=== PATIENT | male | born 1985 | race American Indian/Alaskan Native ===

== ENCOUNTER 2019-12-26 17:43 | Emergency (ER) | payer OTHER ==
[2019-12-26] MEDS ORDERED: KETOROLAC 30 MG/ML INJ ONE (21:21)
--- NOTE | 2019-12-26 21:58 | ER ---
Nurse's Notes [facility] Name: Rowan Carmona Age: 34 yrs Sex: Male : 1985 Arrival Date: 12/26/2019 Time: 17:47 Bed 23 Private MD: Diagnosis: Pain in right lower leg Presentation: 12/25 17:53 Chief complaint: Patient states: R lower leg pain x months that became worse last ss night. Coronavirus screen: Client denies travel out of the [place] in the last 14 days. Ebola Screen: Patient denies exposure to infectious person. Patient denies travel to an Ebola-affected area in the 21 days before illness onset. Initial Sepsis Screen: Does the patient meet any 2 criteria? No. Patient's initial sepsis screen is negative. Does the patient have a suspected source of infection? No. Patient's initial sepsis screen is negative. Risk Assessment: Do you want to hurt yourself or someone else? Patient reports no desire to harm self or others. Onset of symptoms was 2019. 17:53 Method Of Arrival: Ambulatory 17:53 Acuity: [facility] 3 Historical: - Allergies: 17:57 Aspirin; ss - Home Meds: 17:57 None [Active]; ss - PMHx: 17:57 Asthma; ss - PSHx: 17:57 None; ss - Immunization history:: Adult Immunizations up to date. - Social history:: Smoking status: Patient reports the use of cigarette tobacco products, smokes one-half pack cigarettes per day. Vital Signs: 17:53 BP 152 / 96; Pulse 80; Resp 15; Temp 98.5(TE); Pulse Ox 100% on R/A; Weight 88 kg; Height 5 ft. 10 in. (177.80 cm); Pain 8/10; 22:15 BP 156 / 103; Pulse 64; Resp 18; Temp 97.9; Pulse Ox 100% on R/A; dm5 17:53 Body Mass Index 27.84 (88.00 kg, 177.80 cm) ED Course: 17:47 Patient arrived in ED. mr 17:56 Triage completed. 17:57 Arm band placed on right wrist. 20:31 Gopal Coker PA is PHCP. [facility] 20:31 David Millard MD is Attending Physician. m 21:14 Nette Evans, RN is Primary Nurse. dm5 21:56 US Extremity Venous Unilateral Ltd In Process Unspecified. EDMS 21:57 Elmer Hodge MD is Referral Physician. [facility] Administered Medications: 21:15 Drug: Ketorolac 30 mg Route: IM; Site: right deltoid; dm5 Outcome: 21:57 Discharge ordered by . jmm 22:20 Patient left the ED. dm5 Signatures: Dispatcher [employer] EDMO Nette Evans, RN RN dm5 Gopal Coker PA PA jmm Rivera, Mary mr Smirch, Shelby, RN RN ss
--- NOTE | 2019-12-26 21:58 | EDPHYS ---
Physician Documentation [facility] Name: Rowan Carmona Age: 34 yrs Sex: Male : 1985 Arrival Date: 12/26/2019 Time: 17:47 Bed 23 Private MD: ED Physician David Millard HPI: 12/25 20:31 This 34 yrs old Other Male presents to ER via Ambulatory with complaints of Leg jmm Swelling, Back Pain. 20:31 The patient presents with pain. Onset: The symptoms/episode began/occurred gradually, 1 jmm month(s) ago. Modifying factors: The symptoms are alleviated by nothing. the symptoms are aggravated by nothing. Associated signs and symptoms: Pertinent positives: swelling, Pertinent negatives fever. This is a 34 year old male with a history of asthma that presents to the ED with complaints of right lower leg pain for the past month. Patient states recently developing pain and swelling to his right calf. Denies fever. Denies injury. . Historical: - Allergies: 17:57 Aspirin; ss - Home Meds: 17:57 None [Active]; ss - PMHx: 17:57 Asthma; ss - PSHx: 17:57 None; ss - Immunization history:: Adult Immunizations up to date. - Social history:: Smoking status: Patient reports the use of cigarette tobacco products, smokes one-half pack cigarettes per day. ROS: 20:31 Constitutional: Negative for fever, chills, and weight loss, Cardiovascular: Negative jmm for chest pain, palpitations, and edema, Respiratory: Negative for shortness of breath, cough, wheezing, and pleuritic chest pain. 20:31 MS/extremity: Positive for pain, swelling. 20:31 All other systems are negative. Exam: 20:31 Constitutional: This is a well developed, well nourished patient who is awake, alert, jmm and in no acute distress. Head/Face: atraumatic. Eyes: EOMI, no conjunctival erythema appreciated ENT: Moist Mucus Membranes Neck: Trachea midline, Supple Chest/axilla: Normal chest wall appearance and motion. Cardiovascular: Regular rate and rhythm. No edema appreciated Respiratory: Normal respirations, no respiratory distress appreciated Abdomen/GI: Non distended, soft Back: Normal ROM 20:31 Musculoskeletal/extremity: ROM: intact in all extremities, compartments are soft, full dorsalis pulse, mild calf tenderness, NVI. 20:31 Skin: Appearance: Color: normal in color. 20:31 Neuro: Orientation: is normal, Mentation: is normal, Memory: is normal. 20:31 Psych: Behavior/mood is pleasant, cooperative. Vital Signs: 17:53 BP 152 / 96; Pulse 80; Resp 15; Temp 98.5(TE); Pulse Ox 100% on R/A; Weight 88 kg; ss Height 5 ft. 10 in. (177.80 cm); Pain 8/10; 22:15 BP 156 / 103; Pulse 64; Resp 18; Temp 97.9; Pulse Ox 100% on R/A; dm5 17:53 Body Mass Index 27.84 (88.00 kg, 177.80 cm) ss MDM: 20:51 Patient medically screened. [facility] 21:56 Data reviewed: vital signs, nurses notes. Counseling: I had a detailed discussion with [facility] the patient and/or guardian regarding: the historical points, exam findings, and any diagnostic results supporting the discharge/admit diagnosis, radiology results, the need for outpatient follow up, to return to the emergency department if symptoms worsen or persist or if there are any questions or concerns that arise at home. ED course: US negative. Patient advised to follow up with ortho for further evaluation. Patient is otherwise given strict return precautions. Patient understood and agrees with the plan of care. . 12/25 20:53 Order name: US Extremity Venous Unilateral Ltd [facility] Administered Medications: 21:15 Drug: Ketorolac 30 mg Route: IM; Site: right deltoid; dm5 Disposition: 12/26 06:30 Co-signature as Attending Physician, David Millard MD. [email or web address] Disposition: 12/26/19 21:57 Discharged to Home. Impression: Pain in right lower leg. - Condition is Stable. - Discharge Instructions: Musculoskeletal Pain. - Prescriptions for Ultracet 37.5- 325 mg Oral Tablet - take 1 tablet by ORAL route every 6 hours - for up to 5 days; do not exceed 8 tablets per day.; 12 tablet. orphenadrine citrate 100 mg Oral Tablet Sustained Release - take 1 tablet by ORAL route 2 times per day As needed; 20 tablet. - Medication Reconciliation Form, Thank You Letter, Antibiotic Education, Prescription Opioid Use form. - Follow up: Elmer Hodge MD; When: 2 - 3 days; Reason: Recheck today's complaints, Continuance of care, Re-evaluation by your physician. Signatures: Dispatcher [employer] Nette Webster, RN RN dm5 Gopal Coker PA PA jmm Smirch, Shelby, RN RN ss David Millard MD MD [email or web address] Corrections: (The following items were deleted from the chart) 12/25 22:20 21:57 12/26/2019 21:57 Discharged to Home. Impression: Pain in right lower leg. dm5 Condition is Stable. Forms are Medication Reconciliation Form, Thank You Letter, Antibiotic Education, Prescription Opioid Use. Follow up: Elmer Hodge; When: 2 - 3 days; Reason: Recheck today's complaints, Continuance of care, Re-evaluation by your physician. aaron
--- NOTE | 2019-12-27 08:32 | RAD REPORT ---
EXAM DESCRIPTION: USExtremity Venous Uni Ltd12/26/2019 9:56 pm CLINICAL HISTORY: Right leg pain and swelling. COMPARISON: None. FINDINGS: Right common femoral, superficial femoral, popliteal and right posterior tibial veins are compressible and demonstrate augmentation. Doppler demonstrates good flow. Patient has a palpable area within the right calf. No underlying abnormality seen IMPRESSION: No evidence of deep venous thrombosis involving the right lower extremity.
[2019-12-27 09:13] VITALS: O2SAT 100
[2019-12-27 09:15] VITALS: BP 156/103; TEMP 97.9
== END 2019-12-26 22:20 | disposition home or self-care (01) ==
LOC: ER 17:43
DX: M79.661 Pain in right lower leg (principal); J45.909 Unspecified asthma, uncomplicated; F17.210 Nicotine dependence, cigarettes, uncomplicated; Z88.6 Allergy status to analgesic agent
CPT/HCPCS: 93971; 96372; 99283